=== PATIENT | female | born 1955 | race American Indian/Alaskan Native ===

== ENCOUNTER 2019-06-26 13:06 | Inpatient (IN) | payer OTHER ==
--- NOTE | 2019-06-26 14:14 | Emergency Department Report ---
HPI - General Chief Complaint: Dyspnea/Respdistress Time Seen by Provider: 06/26/19 13:34 - HPI HPI: 64-year-old -Turkish female presents to the emergency department via EMS from home with complaint of some shortness of breath and midsternal chest pain that started about 2 hours prior to arrival. The patient has a history of CHF, diabetes and end-stage renal disease on hemodialysis on Sunday and . She has missed her last 2 dialysis sessions including today due to transportation issues. She has not taken anything for symptoms prior to presentation. Symptoms are worse with laying flat. The patient is currently nonambulatory secondary to previous physical deconditioning when she was in the hospital in May. She is a [facility] patient. Pbx Repairer is Dr. Lackey and she goes to [facility] for her dialysis. ED Past Medical Hx - Past Medical History Hx Congestive Heart Failure: Yes Hx Diabetes: Yes Hx Renal Disease: Yes - Social History Smoking Status: Never Smoker ED Review of Systems ROS: Stated complaint: DIFFICULTY BREATHING Other details as noted in HPI Comment: All other systems reviewed and negative Constitutional: denies: chills, fever Eyes: denies: eye pain, vision change ENT: denies: ear pain, throat pain Respiratory: orthopnea, shortness of breath Cardiovascular: chest pain. denies: palpitations Gastrointestinal: denies: abdominal pain, vomiting Genitourinary: denies: dysuria, discharge Musculoskeletal: denies: back pain, arthralgia Skin: denies: rash, lesions Neurological: denies: headache, weakness Physical Exam - Physical Exam Vital Signs: Vital Signs 06/26/19 13:22 Temperature 98.1 F Pulse Rate 60 Respiratory 14 Rate Blood Pressure 148/59 [Left] O2 Sat by Pulse 95 Oximetry Physical Exam: GENERAL: The patient is well-developed well-nourished. HENT: Normocephalic. Atraumatic. Patient has moist mucous membranes. EYES: Extraocular motions are intact. NECK: Supple. Trachea is midline. CHEST/LUNGS: Coarse breath sounds throughout the chest. There is no respiratory distress noted. HEART/CARDIOVASCULAR: Regular. There is no tachycardia. There is no murmur. ABDOMEN: Abdomen is soft, nontender. Patient has normal bowel sounds. Morbidly obese habitus. SKIN: Patient has some mild pitting swelling and lymphedema to the bilateral lower extremities. NEURO: The patient is awake, alert, and oriented. The patient is cooperative. The patient has no focal neurologic deficits. Normal speech. MUSCULOSKELETAL: There is no tenderness or deformity. There is no evidence of acute injury. ED Course Vital Signs 06/26/19 13:22 Temperature 98.1 F Pulse Rate 60 Respiratory 14 Rate Blood Pressure 148/59 [Left] O2 Sat by Pulse 95 Oximetry - Consultations Consultation #1: I spoke with the physician at [facility], Dr. Escoto, who has given permission for the patient to be admitted to our facility. 06/26/19 16:19 Consultation #2: 06/26/19 16:20 I spoke with the steamfitter apprentice on-call, Dr. Dunbar, who is aware of the patient's need for hemodialysis and has been consulted. ED Medical Decision Making - Lab Data Result diagrams: 06/26/19 14:00 06/26/19 14:00 - EKG Data -: EKG Interpreted by Me EKG shows normal: sinus rhythm (PACs), axis (Left axis deviation), intervals, QRS complexes (Left anterior fascicular block), ST-T waves Rate: bradycardia (59 bpm) - EKG Data When compared to previous EKG there are: previous EKG unavailable Interpretation: other (Sinus rhythm with PVCs, left anterior fascicular block) - Radiology Data Radiology results: image reviewed interpreted by me: Chest x-ray shows pulmonary vascular congestion and cardiomegaly. - Medical Decision Making This patient presents with some acute chest pain and shortness of breath and has missed her last 2 dialysis sessions. Chest x-ray shows some pulmonary vascular congestion. EKG does not show any morphology consistent with ST elevation OR. Labs show a BUN of about 70 and a GFR of 5 consistent with her end-stage renal disease. No hyperkalemia. She does have an elevated troponin of 0.125. Nephrology has been contacted and consulted. [facility] has been contacted and has given permission to admit the patient to our facility. Patient was accepted for admission by the hospitalist, Dr. Lopez. - Differential Diagnosis CHF, OR, pneumonia, electrolyte abnormalities Critical Care Time: No Critical care attestation.: If time is entered above; I have spent that time in minutes in the direct care of this critically ill patient, excluding procedure time. ED Disposition Clinical Impression: Acute chest pain, End-stage renal disease needing dialysis, Elevated troponin level Disposition: 09 OP ADMIT IP TO THIS HOSP Is pt being admited?: Yes Condition: Fair Instructions: Chest Pain (ED) Time of Disposition: 16:24
[2019-06-26 14:29] LABS: Basophils # (Auto) 0.1 K/mm3 (0.0-0.1); Basophils % (Auto) 0.9 % (0.0-1.8); Eosinophils # (Auto) 0.3 K/mm3 (0.0-0.4); Eosinophils % (Auto) 3.9 % (0.0-4.3); Hematocrit 36.7 % (30.3-42.9); Lymphocytes % (Auto) 14.3 % (13.4-35.0); Mean Corpuscular HGB Conc 33 % (30-34); Mean Corpuscular Volume 88 fl (79-97); Monocytes # (Auto) 0.8 K/mm3 (0.0-0.8); Monocytes % (Auto) 11.1 % (0.0-7.3); Platelet Count 231 K/mm3 (140-440); Red Blood Count 4.17 M/mm3 (3.65-5.03); Red Cell Distribution Width 16.4 % (13.2-15.2)
[2019-06-26 14:55] LABS: Calcium 9.5 mg/dL (8.4-10.2)
[2019-06-26 15:14] LABS: Chol/HDL Ratio 3.44 %
[2019-06-26] MEDS ORDERED: ACETAMINOPHEN 325 MG TAB PO PRN (15:33)
[2019-06-26] MEDS ORDERED: ONDANSETRON 4 MG/2 ML INJ IV PRN (15:33)
[2019-06-26] MEDS ORDERED: ALBUTEROL 2.5 MG/3 ML NEBU IH PRN (15:33)
--- NOTE | 2019-06-26 15:33 | History and Physical Report ---
History of Present Illness Chief complaint: I just cannot breathe right History of present illness: 64-year-old female with ESRD on HD (T,R,Sa), DM, CHF presents to ED for evaluation. Patient states that she has experienced shortness of breath over the last 1 day with worsening symptoms over the past 6 hours. Patient states that she has missed her last 2 dialysis sessions due to inability to secure transportation to and from dialysis. EMS was notified and upon arrival the patient was found to be in distress and subsequently transported to [facility] for further care and evaluation. Patient seen and evaluated in the emergency department. Lab and imaging studies reviewed. Patient checks x-ray shows congestion. Patient found to have end-stage renal disease complicated by fluid overload and in need of urgent dialysis. Patient placed in observation status and admitted to medical floor for medical stabilization due to increased risk for decompensation. Nephrology team consulted in ED for dialysis. Patient d enies fever, chills, chest pain, palpitations, bright red blood per rectum, productive cough, skin rash, recent ill contacts. No prior admission for review. No medication listed at time of admission for reconciliation. Past History Past Medical History: diabetes, heart failure, hypertension Past Surgical History: Other (Dialysis access) Social history: . denies: smoking, alcohol abuse, prescription drug abuse Family history: hypertension Medications and Allergies Allergies Allergy/AdvReac Type Severity Reaction Status Date / Time NSAIDS (Non-Steroidal Allergy Unknown Verified 06/26/19 13:23 Anti-Inflamma Home Medications Medication Instructions Recorded Confirmed Last Taken Type AtorvaSTATin [Lipitor] 40 mg PO QHS 06/26/19 06/26/19 Unknown History Gabapentin [Neurontin] 300 mg PO QDAY 06/26/19 06/26/19 Unknown History ISOSORBIDE MONOnitrate [Imdur ER] 30 mg PO DAILY 06/26/19 06/26/19 Unknown History Insulin NPH Human Isophane 30 unit SQ BID 06/26/19 06/26/19 Unknown History [Humulin N] NIFEdipine [Adalat cc] 90 mg PO QDAY 06/26/19 06/26/19 Unknown History Torsemide [Demadex] 100 mg PO QDAY 06/26/19 06/26/19 Unknown History carvediloL [Coreg] 3.125 mg PO BID 06/26/19 06/26/19 Unknown History levETIRAcetam [Keppra XR TAB] 500 mg PO QDAY 06/26/19 06/26/19 Unknown History Review of Systems Constitutional: no weight loss, no weight gain, no fever, no chills Ears, nose, mouth and throat: no ear pain, no ear discharge, no decreased hearing, no nose pain, no nasal congestion, no nasal discharge Breasts: no change in shape, no swelling, no mass Cardiovascular: orthopnea, shortness of breath, decreased exercise tolerance, no chest pain Respiratory: no cough, no cough with sputum, no excessive sputum Gastrointestinal: no abdominal pain, no nausea, no vomiting, no diarrhea Genitourinary Female: no pelvic pain, no flank pain, no menorrhagia, no dysuria, no urinary frequency, no urgency Rectal: no pain, no incontinence, no bleeding Musculoskeletal: no neck stiffness, no neck pain, no arm numbness/tingling, no shooting leg pain, no leg numbness/tingling Integumentary: no rash, no pruritis, no redness, no sores, no wounds Neurological: no head injury, no transient paralysis, no paralysis, no weakness, no parathesias, no numbness, no tingling Psychiatric: no anxiety, no memory loss, no change in sleep habits, no sleep disturbances, no hypersomnia, no change in appetite Endocrine: no cold intolerance, no heat intolerance, no polyphagia, no excessive thirst, no polydipsia, no polyuria, no nocturia Hematologic/Lymphatic: lymphedema, no easy bruising, no easy bleeding, no lymphadenopathy Allergic/Immunologic: no urticaria, no allergic rhinitis, no anaphylaxis Exam - Constitutional Vitals: Temp Pulse Resp BP Pulse Ox 98.1 F 60 14 148/59 95 06/26/19 13:22 06/26/19 13:22 06/26/19 13:22 06/26/19 13:22 06/26/19 13:22 General appearance: Present: mild distress, obese - EENT Eyes: Present: PERRL ENT: hearing intact, clear oral mucosa - Neck Neck: Present: supple, normal ROM - Respiratory Respiratory effort: normal, accessory muscle use Respiratory: bilateral: CTA, diminished, rhonchi - Cardiovascular Heart Sounds: Present: S1 & S2. Absent: rub, click - Extremities Extremities: pulses symmetrical Extremity abnormal: edema Peripheral Pulses: within normal limits - Abdominal General gastrointestinal: Present: soft, non-tender, non-distended, normal bowel sounds Female genitourinary: Present: normal - Integumentary Integumentary: Present: clear, warm, dry - Musculoskeletal Musculoskeletal: gait normal, strength equal bilaterally - Psychiatric Psychiatric: appropriate mood/affect, intact judgment & insight - Neurologic Neurologic: CNII-XII intact, moves all extremities Results - Labs CBC & Chem 7: 06/26/19 14:00 06/26/19 14:00 Labs: Abnormal lab results 06/26/19 06/26/19 Range/Units 14:00 14:00 RDW 16.4 H (13.2-15.2) % [place] % (Auto) 11.1 H (0.0-7.3) % Lymph # 1.0 L (1.2-5.4) K/mm3 Chloride 94.8 L (98-107) mmol/L BUN 73 H (7-17) mg/dL Creatinine 9.5 H (0.7-1.2) mg/dL Glucose 202 H (65-100) mg/dL Troponin T 0.125 H* (0.00-0.029) ng/mL NT-Pro-B Natriuret Pep 4372 H (0-900) pg/mL Assessment and Plan - Patient Problems (1) ESRD (end stage renal disease) Current Visit: Yes Status: Acute Plan to address problem: Nephrology consulted in ED, strict I's/O, daily weight, monitor urine output every shift, avoid nephrotoxic agents, dialysis as per renal team. (2) Fluid overload Current Visit: Yes Status: Acute Qualifiers: Hypervolemia type: unspecified Qualified Code(s): E87.70 - Fluid overload, unspecified Plan to address problem: Chest x-ray, urgent dialysis, supplemental oxygen, pulse oximetry, supportive care. (3) Obesity hypoventilation syndrome Current Visit: Yes Status: Acute Plan to address problem: Submental oxygen, nebulizer therapy, noninvasive positive pressure ventilation as clinically indicated. (4) CHF (congestive heart failure) Current Visit: Yes Status: Acute Qualifiers: Heart failure chronicity: chronic Plan to address problem: Strict I's/O, daily weight, afterload reduction, BNP, blood pressure control, submental oxygen, supportive care (5) DVT prophylaxis Current Visit: Yes Status: Acute Plan to address problem: SCD to bilateral lower extremities while in bed, patient is ambulatory. (6) Advance care planning Current Visit: Yes Status: Acute Plan to address problem: Patient is full code, disease education conducted, patient acknowledges understanding and agreement with care plan. +30 minutes.
--- NOTE | 2019-06-26 15:36 | XRay Report ---
CHEST 1 VIEW INDICATION: SOB, CP. COMPARISON: None. FINDINGS: Support devices: A right Vas-Cath tip is in the right atrium. Heart: Mildly enlarged. Pulmonary vasculature: Central vascular congestion. Lungs/Pleura: Lungs are normally expanded and clear. No airspace disease or pleural effusion. Additional findings: None. IMPRESSION: 1. Cardiomegaly and pulmonary venous hypertension. No pulmonary edema or pleural effusion. Signer Name: Vlad Mcgill MD Signed: 06/26/2019 3:32 PM Workstation Name: [id number]
[2019-06-26] MEDS ORDERED: SODIUM CHLORIDE 0.9% 100 ML IV PRN (16:10)
[2019-06-26 16:43] LABS: Hepatitis B Surface Antigen Non-Reactive (Negative); Hepatitis C Virus Antibody Non-Reactive (NonReactive)
[2019-06-27 07:40] LABS: Calcium 9.1 mg/dL (8.4-10.2)
--- NOTE | 2019-06-27 10:34 | Progress Note ---
Assessment and Plan Assessment and plan: -- ESRD (end stage renal disease) Current Visit: Yes Status: Acute Plan to address problem: Nephrology consulted in ED, strict I's/O, daily weight, monitor urine output every shift, avoid nephrotoxic agents, dialysis as per renal team. --Fluid overload Current Visit: Yes Status: Acute Qualifiers: Hypervolemia type: unspecified Qualified Code(s): E87.70 - Fluid overload, unspecified Plan to address problem: Chest x-ray, urgent dialysis, supplemental oxygen, pulse oximetry, supportive care. -- Obesity hypoventilation syndrome Current Visit: Yes Status: Acute Plan to address problem: Submental oxygen, nebulizer therapy, noninvasive positive pressure ventilation as clinically indicated. --CHF (congestive heart failure) Current Visit: Yes Status: Acute Qualifiers: Heart failure chronicity: chronic Plan to address problem: Strict I's/O, daily weight, afterload reduction, BNP, blood pressure control, submental oxygen, supportive care --DVT prophylaxis Current Visit: Yes Status: Acute Plan to address problem: SCD to bilateral lower extremities while in bed, patient is ambulatory. -- Advance care planning Current Visit: Yes Status: Acute Plan to address problem: Patient is full code, disease education conducted, patient acknowledges understanding and agreement with care plan. +30 minutes. History Interval history: Morbidly obese 64-year-old female patient with significant history of end-stage renal disease hemodialysis diabetes mellitus congestive heart failure was admitted through emergency room with worsening shortness of breath of 1 day duration. Patient complains of shortness of breath and uneasiness Also complains of generalized body pains Alert awake oriented In mild distress, signs reviewed Hospitalist Physical - Constitutional Vitals: Temp Pulse Resp BP Pulse Ox 97.7 F 55 L 16 126/37 98 06/27/19 06:00 06/27/19 06:00 06/27/19 06:00 06/27/19 06:00 06/27/19 06:00 General appearance: Present: mild distress, well-nourished, obese - EENT Eyes: Present: PERRL, EOM intact - Neck Neck: Present: supple, normal ROM - Respiratory Respiratory effort: normal Respiratory: bilateral: diminished, wheezing, negative: rales, rhonchi - Cardiovascular Rhythm: regular Heart Sounds: Present: S1 & S2 - Extremities Extremities: no ischemia Extremity abnormal: edema - Abdominal General gastrointestinal: soft, non-tender, non-distended, normal bowel sounds - Integumentary Integumentary: Present: clear, warm - Psychiatric Psychiatric: appropriate mood/affect - Neurologic Neurologic: CNII-XII intact, moves all extremities Results - Labs CBC & Chem 7: 06/26/19 14:00 06/27/19 07:15 Labs: Laboratory Last Values WBC 6.9 K/mm3 (4.5-11.0) 06/26/19 14:00 RBC 4.17 M/mm3 (3.65-5.03) 06/26/19 14:00 Hgb 12.0 gm/dl (10.1-14.3) 06/26/19 14:00 Hct 36.7 % (30.3-42.9) 06/26/19 14:00 MCV 88 fl (79-97) 06/26/19 14:00 MCH 29 pg (28-32) 06/26/19 14:00 MCHC 33 % (30-34) 06/26/19 14:00 RDW 16.4 % (13.2-15.2) H 06/26/19 14:00 Plt Count 231 K/mm3 (140-440) 06/26/19 14:00 Lymph % (Auto) 14.3 % (13.4-35.0) 06/26/19 14:00 [place] % (Auto) 11.1 % (0.0-7.3) H 06/26/19 14:00 Eos % (Auto) 3.9 % (0.0-4.3) 06/26/19 14:00 Baso % (Auto) 0.9 % (0.0-1.8) 06/26/19 14:00 Lymph # 1.0 K/mm3 (1.2-5.4) L 06/26/19 14:00 [place] # 0.8 K/mm3 (0.0-0.8) 06/26/19 14:00 Eos # 0.3 K/mm3 (0.0-0.4) 06/26/19 14:00 Baso # 0.1 K/mm3 (0.0-0.1) 06/26/19 14:00 Seg Neutrophils % 69.8 % (40.0-70.0) 06/26/19 14:00 Seg Neutrophils # 4.8 K/mm3 (1.8-7.7) 06/26/19 14:00 Sodium 138 mmol/L (137-145) 06/27/19 07:15 Potassium 5.1 mmol/L (3.6-5.0) H 06/27/19 07:15 Chloride 95.2 mmol/L (98-107) L 06/27/19 07:15 Carbon Dioxide 22 mmol/L (22-30) 06/27/19 07:15 Anion Gap 26 mmol/L 06/27/19 07:15 BUN 87 mg/dL (7-17) H 06/27/19 07:15 Creatinine 9.4 mg/dL (0.7-1.2) H 06/27/19 07:15 Estimated GFR 5 ml/min 06/27/19 07:15 BUN/Creatinine Ratio 9 % 06/27/19 07:15 Glucose 187 mg/dL (65-100) H 06/27/19 07:15 Calcium 9.1 mg/dL (8.4-10.2) 06/27/19 07:15 Troponin T 0.125 ng/mL (0.00-0.029) H* 06/26/19 14:00 NT-Pro-B Natriuret Pep 4372 pg/mL (0-900) H 06/26/19 14:00 Triglycerides 142 mg/dL (2-149) 06/26/19 14:00 Cholesterol 169 mg/dL (50-199) 06/26/19 14:00 LDL Cholesterol Direct 112 mg/dL (50-130) 06/26/19 14:00 HDL Cholesterol 49 mg/dL (40-59) 06/26/19 14:00 Cholesterol/HDL Ratio 3.44 % 06/26/19 14:00 Hepatitis A IgM Ab Non-reactive (NonReactive) 06/26/19 14:00 Hep Bs Antigen Non-reactive (Negative) 06/26/19 14:00 Hep B Core IgM Ab Non-reactive (NonReactive) 06/26/19 14:00 Hepatitis C Antibody Non-reactive (NonReactive) 06/26/19 14:00 Active Medications - Current Medications Current Medications: Generic Name Dose Route Start Last Admin Trade Name Freq PRN Reason Stop Dose Admin Acetaminophen 650 mg 06/26/19 15:33 Tylenol PO Q4H PRN Pain MILD(1-3)/Fever >100.5/HUITRON Albuterol 2.5 mg 06/26/19 15:33 Proventil IH Q4HRT PRN Shortness Of Breath Sodium Chloride 100 mls @ 999 mls/hr 06/26/19 16:10 Nacl 0.9% IV LIONEL PRN Hypotension Ondansetron HCl 4 mg 06/26/19 15:33 Zofran IV Q8H PRN Nausea And Vomiting Sodium Chloride 10 ml 06/26/19 22:00 Sodium Chloride Flush Syringe 10 Ml IV BID SATHYA Sodium Chloride 10 ml 06/26/19 15:33 Sodium Chloride Flush Syringe 10 Ml IV PRN PRN LINE FLUSH
--- NOTE | 2019-06-27 13:39 | Consultation ---
History of Present Illness - Reason for Consult chronic renal failure - History of Present Illness Pleasant 64 y/o AAF with h/o CKD V in the setting of DM, CHF, HTN, who recently was started on chronic HD ~ one month prior, presented to the ED short of breath after missing two consecutive HD sessions secondary to transportation issues. Patient typically dialyzes on a TTS schedule. Her outpatient right of way buyer is Dr Lackey. She dialyzes via a RIJ permcath. Nephrology consulted for chronic HD needs. Past History Past Medical History: diabetes, heart failure, hypertension Past Surgical History: Other (Dialysis access) Social history: . denies: smoking, alcohol abuse, prescription drug abuse Family history: hypertension Medications and Allergies Allergies Allergy/AdvReac Type Severity Reaction Status Date / Time NSAIDS (Non-Steroidal Allergy Unknown Verified 06/26/19 13:23 Anti-Inflamma Home Medications Medication Instructions Recorded Confirmed Last Taken Type AtorvaSTATin [Lipitor] 40 mg PO QHS 06/26/19 06/26/19 Unknown History Gabapentin [Neurontin] 300 mg PO QDAY 06/26/19 06/26/19 Unknown History ISOSORBIDE MONOnitrate [Imdur ER] 30 mg PO DAILY 06/26/19 06/26/19 Unknown History Insulin NPH Human Isophane 30 unit SQ BID 06/26/19 06/26/19 Unknown History [Humulin N] NIFEdipine [Adalat cc] 90 mg PO QDAY 06/26/19 06/26/19 Unknown History Torsemide [Demadex] 100 mg PO QDAY 06/26/19 06/26/19 Unknown History carvediloL [Coreg] 3.125 mg PO BID 06/26/19 06/26/19 Unknown History levETIRAcetam [Keppra XR TAB] 500 mg PO QDAY 06/26/19 06/26/19 Unknown History Active Meds: Active Medications Acetaminophen (Tylenol) 650 mg PO Q4H PRN PRN Reason: Pain MILD(1-3)/Fever >100.5/HUITRON Albuterol (Proventil) 2.5 mg IH Q4HRT PRN PRN Reason: Shortness Of Breath Sodium Chloride (Nacl 0.9%) 100 mls @ 999 mls/hr IV LIONEL PRN PRN Reason: Hypotension Ondansetron HCl (Zofran) 4 mg IV Q8H PRN PRN Reason: Nausea And Vomiting Sodium Chloride (Sodium Chloride Flush Syringe 10 Ml) 10 ml IV BID SATHYA Sodium Chloride (Sodium Chloride Flush Syringe 10 Ml) 10 ml IV PRN PRN PRN Reason: LINE FLUSH Review of Systems All systems: negative Constitutional: fatigue, weakness Respiratory: shortness of breath Exam - Vital Signs Vital signs: Vital Signs Pulse Ox 96 06/26/19 13:12 - General Appearance General appearance: well-developed, well-nourished, obese EENT: ATNC, PERRL Neck: Present: neck supple, trachea midline Respiratory: Decreased Breath Sounds Heart: regular, S1S2 Gastrointestinal: Present: normal, normoactive bowel sounds Integumentary: no rash, warm and dry Neurologic: no focal deficit Musculoskeletal: Present: deferred Psychiatric: mood/affect appropriate Results - Lab Results 06/26/19 14:00 06/27/19 07:15 Most recent lab results Calcium 9.1 mg/dL (8.4-10.2) 06/27/19 07:15 Assessment and Plan - Patient Problems (1) ESRD (end stage renal disease) Current Visit: Yes Status: Chronic Plan to address problem: Will dialyze today and then place back on a TTS inpatient schedule. (2) Hyperkalemia Current Visit: Yes Status: Acute Plan to address problem: Will dialyze on 2K bath. Counseled patient on the importance of low potassium diet. (3) Fluid overload Current Visit: Yes Status: Acute Qualifiers: Hypervolemia type: unspecified Qualified Code(s): E87.70 - Fluid overload, unspecified Plan to address problem: Will optimze fluid status with two consecutive HD session, with UF goal 2-3 L per treatment as tolerated. (4) Type 2 diabetes mellitus with diabetic chronic kidney disease Current Visit: Yes Status: Chronic Qualifiers: Chronic kidney disease stage: on chronic dialysis Plan to address problem: Management per primary attending. (5) Hypertensive chronic kidney disease with stage 5 chronic kidney disease or end stage renal disease Current Visit: Yes Status: Acute Plan to address problem: Monitor blood pressure under current regimen.
[2019-06-27] MEDS: oxyCODONE /ACETAMINOPHEN 5-325MG TAB PO PRN (20:47)
[2019-06-27] MEDS: INSULIN LISPRO 100 UNIT/ML SUB-Q SCH (22:03)
[2019-06-27] MEDS: carvediloL 3.125 MG TAB PO SCH (22:03)
[2019-06-28] MEDS: oxyCODONE /ACETAMINOPHEN 5-325MG TAB PO PRN (03:44)
[2019-06-28] MEDS: INSULIN NPH, HUMAN 100 UNIT/1 ML SUB-Q SCH ×2 (09:49→23:01)
[2019-06-28] MEDS: levETIRAcetam 500 MG TAB PO SCH ×2 (09:49→22:57)
[2019-06-28] MEDS: GABAPENTIN 300 MG CAP PO SCH (09:50)
[2019-06-28] MEDS: TORSEMIDE 100 MG TAB PO SCH (09:50)
[2019-06-28] MEDS: INSULIN LISPRO 100 UNIT/ML SUB-Q SCH ×4 (09:51→23:00)
[2019-06-28] MEDS ORDERED: LEVETIRACETAM 500 MG PO SCH (10:00)
[2019-06-28] MEDS ORDERED: NON-FORMULARY EACH (Nifedipine [Adalat Cc] 90 MG) PO SCH (10:00)
--- NOTE | 2019-06-28 10:59 | Progress Note ---
Assessment and Plan Assessment and plan: Patient was admitted with fluid overload received hemodialysis yesterday Nephrology recommend HD today for removal of excess fluid Patient also complains of left wrist pain Will check x-ray left wrist for any acute abnormality Consult orthopedic if needed --Left wrist pain; probably arthritis Supportive care, pain medications, x-ray left wrist -- ESRD (end stage renal disease) Current Visit: Yes Status: Acute Plan to address problem: Nephrology consulted in ED, strict I's/O, daily weight, monitor urine output every shift, avoid nephrotoxic agents, dialysis as per renal team. --Fluid overload Current Visit: Yes Status: Acute Plan to address problem: Chest x-ray, urgent dialysis, supplemental oxygen, pulse oximetry, supportive care. -- Obesity hypoventilation syndrome Current Visit: Yes Status: Acute Plan to address problem: oxygen, nebulizer therapy, noninvasive positive pressure ventilation as clinically indicated. --CHF (congestive heart failure) Current Visit: Yes Status: Acute Plan to address problem: Strict I's/O, daily weight, afterload reduction, BNP, blood pressure control, submental oxygen, supportive care --DVT prophylaxis Current Visit: Yes Status: Acute Plan to address problem: SCD to bilateral lower extremities while in bed, patient is ambulatory. -- Advance care planning Current Visit: Yes Status: Acute Plan to address problem: Patient is full code, disease education conducted, patient acknowledges understanding and agreement with care plan. History Interval history: Patient seen and examined patient's chart , medications and other records reviewed Patient complains of left wrist pain and swelling for the last couple of days, No history of trauma Feels slightly better; receiving hemodialysis per schedule Still has some fluid overload complains of shortness of breath Vital signs noted Hospitalist Physical - Constitutional Vitals: Temp Pulse Resp BP Pulse Ox 98.5 F 57 L 20 167/46 98 06/28/19 05:46 06/28/19 05:46 06/28/19 05:46 06/28/19 05:46 06/28/19 05:46 General appearance: Present: mild distress, well-nourished, obese - EENT Eyes: Present: PERRL, EOM intact - Neck Neck: Present: supple, normal ROM - Respiratory Respiratory effort: normal Respiratory: bilateral: diminished, rales, negative: rhonchi, wheezing - Cardiovascular Rhythm: regular Heart Sounds: Present: S1 & S2 - Extremities Extremities: no ischemia, No edema - Abdominal General gastrointestinal: soft, non-tender, non-distended, normal bowel sounds - Integumentary Integumentary: Present: clear, warm - Psychiatric Psychiatric: appropriate mood/affect, cooperative - Neurologic Neurologic: moves all extremities Results - Labs CBC & Chem 7: 06/26/19 14:00 06/27/19 07:15 Labs: Laboratory Last Values WBC 6.9 K/mm3 (4.5-11.0) 06/26/19 14:00 RBC 4.17 M/mm3 (3.65-5.03) 06/26/19 14:00 Hgb 12.0 gm/dl (10.1-14.3) 06/26/19 14:00 Hct 36.7 % (30.3-42.9) 06/26/19 14:00 MCV 88 fl (79-97) 06/26/19 14:00 MCH 29 pg (28-32) 06/26/19 14:00 MCHC 33 % (30-34) 06/26/19 14:00 RDW 16.4 % (13.2-15.2) H 06/26/19 14:00 Plt Count 231 K/mm3 (140-440) 06/26/19 14:00 Lymph % (Auto) 14.3 % (13.4-35.0) 06/26/19 14:00 [place] % (Auto) 11.1 % (0.0-7.3) H 06/26/19 14:00 Eos % (Auto) 3.9 % (0.0-4.3) 06/26/19 14:00 Baso % (Auto) 0.9 % (0.0-1.8) 06/26/19 14:00 Lymph # 1.0 K/mm3 (1.2-5.4) L 06/26/19 14:00 [place] # 0.8 K/mm3 (0.0-0.8) 06/26/19 14:00 Eos # 0.3 K/mm3 (0.0-0.4) 06/26/19 14:00 Baso # 0.1 K/mm3 (0.0-0.1) 06/26/19 14:00 Seg Neutrophils % 69.8 % (40.0-70.0) 06/26/19 14:00 Seg Neutrophils # 4.8 K/mm3 (1.8-7.7) 06/26/19 14:00 Sodium 138 mmol/L (137-145) 06/27/19 07:15 Potassium 5.1 mmol/L (3.6-5.0) H 06/27/19 07:15 Chloride 95.2 mmol/L (98-107) L 06/27/19 07:15 Carbon Dioxide 22 mmol/L (22-30) 06/27/19 07:15 Anion Gap 26 mmol/L 06/27/19 07:15 BUN 87 mg/dL (7-17) H 06/27/19 07:15 Creatinine 9.4 mg/dL (0.7-1.2) H 06/27/19 07:15 Estimated GFR 5 ml/min 06/27/19 07:15 BUN/Creatinine Ratio 9 % 06/27/19 07:15 Glucose 187 mg/dL (65-100) H 06/27/19 07:15 POC Glucose 217 (70-105) H 06/28/19 08:47 Calcium 9.1 mg/dL (8.4-10.2) 06/27/19 07:15 Troponin T 0.125 ng/mL (0.00-0.029) H* 06/26/19 14:00 NT-Pro-B Natriuret Pep 4372 pg/mL (0-900) H 06/26/19 14:00 Triglycerides 142 mg/dL (2-149) 06/26/19 14:00 Cholesterol 169 mg/dL (50-199) 06/26/19 14:00 LDL Cholesterol Direct 112 mg/dL (50-130) 06/26/19 14:00 HDL Cholesterol 49 mg/dL (40-59) 06/26/19 14:00 Cholesterol/HDL Ratio 3.44 % 06/26/19 14:00 Hepatitis A IgM Ab Non-reactive (NonReactive) 06/26/19 14:00 Hep Bs Antigen Non-reactive (Negative) 06/26/19 14:00 Hep B Core IgM Ab Non-reactive (NonReactive) 06/26/19 14:00 Hepatitis C Antibody Non-reactive (NonReactive) 06/26/19 14:00 Active Medications - Current Medications Current Medications: Generic Name Dose Route Start Last Admin Trade Name Freq PRN Reason Stop Dose Admin Acetaminophen 650 mg 06/26/19 15:33 Tylenol PO Q4H PRN Pain MILD(1-3)/Fever >100.5/HUITRON Albuterol 2.5 mg 06/26/19 15:33 Proventil IH Q4HRT PRN Shortness Of Breath Atorvastatin Calcium 40 mg 06/27/19 22:00 06/27/19 22:03 Lipitor PO 40 mg QHS SATHYA Administration Carvedilol 3.125 mg 06/27/19 22:00 06/27/19 22:03 Coreg PO 3.125 mg BID SATHYA Administration Gabapentin 300 mg 06/28/19 10:00 06/28/19 09:50 Gabapentin PO 300 mg QDAY SATHYA Administration Sodium Chloride 100 mls @ 999 mls/hr 06/26/19 16:10 Nacl 0.9% IV LIONEL PRN Hypotension Insulin Human Lispro 0 unit 06/27/19 22:00 06/28/19 09:51 Humalog SUB-Q 3 unit ACHS SATHYA Administration Protocol Insulin Human NPH 30 unit 06/27/19 22:00 06/28/19 09:49 Humulin N SUB-Q 30 unit BID SATHYA Administration Isosorbide Mononitrate 30 mg 06/28/19 10:00 Imdur PO DAILY COUNT INCLUDES THE [facility] Levetiracetam 250 mg 06/28/19 10:00 06/28/19 09:49 Keppra PO 250 mg BID SATHYA Administration Nifedipine 90 mg 06/28/19 10:00 Procardia Xl PO QDAY COUNT INCLUDES THE [facility] Ondansetron HCl 4 mg 06/26/19 15:33 Zofran IV Q8H PRN Nausea And Vomiting Oxycodone/Acetaminophen 1 tab 06/27/19 17:16 06/28/19 03:44 Percocet 5/325 PO 1 tab Q6H PRN Administration Pain, Moderate (4-6) Sodium Chloride 10 ml 06/26/19 22:00 06/28/19 09:48 Sodium Chloride Flush Syringe 10 Ml IV 10 ml BID SATHYA Administration Sodium Chloride 10 ml 06/26/19 15:33 Sodium Chloride Flush Syringe 10 Ml IV PRN PRN LINE FLUSH Torsemide 100 mg 06/28/19 10:00 06/28/19 09:50 Demadex PO 100 mg QDAY SATHYA Administration
[2019-06-28] MEDS ORDERED: SODIUM CHLORIDE 0.9% 100 ML IV PRN (11:06)
[2019-06-28] MEDS: carvediloL 3.125 MG TAB PO SCH ×2 (11:23→22:59)
[2019-06-28] MEDS: NIFEdipine XL 90 MG TAB PO SCH (11:28)
--- NOTE | 2019-06-28 12:50 | XRay Report ---
LEFT WRIST 4 VIEW(S) INDICATION / CLINICAL INFORMATION: pain/swelling COMPARISON: None available. 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 No acute fracture or subluxation. SOFT TISSUES: Moderate soft tissue swelling around the left wrist. Vascular calcifications characteri stic of diabetes and/or renal failure. ADDITIONAL FINDINGS: None. Signer Name: Seng Roth MD Signed: 06/28/2019 12:45 PM Workstation Name: [id number]
[2019-06-29] MEDS: INSULIN LISPRO 100 UNIT/ML SUB-Q SCH ×2 (07:54→13:57)
--- NOTE | 2019-06-29 08:44 | Progress Note ---
Assessment and Plan - Patient Problems (1) End-stage renal disease needing dialysis Current Visit: Yes Status: Acute Plan to address problem: cont HD on TTS inpatient schedule. (2) Hyperkalemia Current Visit: Yes Status: Acute Plan to address problem: To be corrected with HD Counseled patient on the importance of low potassium diet. (3) Fluid overload Current Visit: Yes Status: Acute Qualifiers: Hypervolemia type: unspecified Qualified Code(s): E87.70 - Fluid overload, unspecified Plan to address problem: Fluid status improved with consecutive HDs. cont HD on TTS schedule (4) Type 2 diabetes mellitus with diabetic chronic kidney disease Current Visit: Yes Status: Chronic Qualifiers: Chronic kidney disease stage: on chronic dialysis Plan to address problem: Management per primary attending. (5) Hypertensive chronic kidney disease with stage 5 chronic kidney disease or end stage renal disease Current Visit: Yes Status: Acute Plan to address problem: Monitor blood pressure under current regimen. Subjective Date of service: 06/29/19 Principal diagnosis: ESRD Interval history: Pt awake, alert, in no acute distress, denies fever, chills, CP, SOB, palpitations. Objective - Vital Signs Vital signs: Vital Signs - 12hr 06/28/19 06/28/19 06/29/19 21:11 22:59 05:08 Temperature 98.6 F 98.8 F Pulse Rate 62 62 59 L Respiratory 16 20 Rate Blood Pressure 165/47 165/47 148/44 O2 Sat by Pulse 98 99 Oximetry - General Appearance General appearance: well-developed, well-nourished, appears stated age, obese EENT: ATNC, PERRL, mucous membranes moist Neck: no JVD Respiratory: Present: Decreased Breath Sounds Cardiology: regular, S1S2 Gastrointestinal: normoactive bowel sounds, obese Integumentary: no rash Neurologic: no focal deficit, alert and oriented x3, strength 5/5, CN 3-12 intact Psychiatric: mood/affect appropriate, cooperative - Lab 06/26/19 14:00 06/27/19 07:15 Most recent lab results Calcium 9.1 mg/dL (8.4-10.2) 06/27/19 07:15 Medications & Allergies - Medications Allergies/Adverse Reactions: Allergies NSAIDS (Non-Steroidal Anti-Inflamma Allergy (Verified 06/26/19 13:23) Unknown Home Medications: Home Medications Medication Instructions Recorded Confirmed Last Taken Type AtorvaSTATin [Lipitor] 40 mg PO QHS 06/26/19 06/26/19 Unknown History Gabapentin [Neurontin] 300 mg PO QDAY 06/26/19 06/26/19 Unknown History ISOSORBIDE MONOnitrate [Imdur ER] 30 mg PO DAILY 06/26/19 06/26/19 Unknown History Insulin NPH Human Isophane 30 unit SQ BID 06/26/19 06/26/19 Unknown History [Humulin N] NIFEdipine [Adalat cc] 90 mg PO QDAY 06/26/19 06/26/19 Unknown History Torsemide [Demadex] 100 mg PO QDAY 06/26/19 06/26/19 Unknown History carvediloL [Coreg] 3.125 mg PO BID 06/26/19 06/26/19 Unknown History levETIRAcetam [Keppra XR TAB] 500 mg PO QDAY 06/26/19 06/26/19 Unknown History Active Medications: Generic Name Dose Route Start Last Admin Trade Name Freq PRN Reason Stop Dose Admin Acetaminophen 650 mg 06/26/19 15:33 Tylenol PO Q4H PRN Pain MILD(1-3)/Fever >100.5/HUITRON Albuterol 2.5 mg 06/26/19 15:33 Proventil IH Q4HRT PRN Shortness Of Breath Atorvastatin Calcium 40 mg 06/27/19 22:00 06/28/19 23:02 Lipitor PO 40 mg QHS SATHYA Administration Carvedilol 3.125 mg 06/27/19 22:00 06/28/19 22:59 Coreg PO 3.125 mg BID SATHYA Administration Gabapentin 300 mg 06/28/19 10:00 06/28/19 09:50 Gabapentin PO 300 mg QDAY SATHYA Administration Sodium Chloride 100 mls @ 999 mls/hr 06/26/19 16:10 Nacl 0.9% IV LIONEL PRN Hypotension Sodium Chloride 100 mls @ 999 mls/hr 06/28/19 11:06 Nacl 0.9% IV LIONEL PRN Hypotension Insulin Human Lispro 0 unit 06/27/19 22:00 06/29/19 07:54 Humalog SUB-Q Not Given ACHS SATHYA Protocol Insulin Human NPH 30 unit 06/27/19 22:00 06/28/19 23:01 Humulin N SUB-Q 30 unit BID SATHYA Administration Isosorbide Mononitrate 30 mg 06/28/19 10:00 06/28/19 11:25 Imdur PO Not Given DAILY SATHYA Levetiracetam 250 mg 06/28/19 10:00 06/28/19 22:57 Keppra PO 250 mg BID SATHYA Administration Nifedipine 90 mg 06/28/19 10:00 06/28/19 11:28 Procardia Xl PO Not Given QDAY SATHYA Ondansetron HCl 4 mg 06/26/19 15:33 Zofran IV Q8H PRN Nausea And Vomiting Oxycodone/Acetaminophen 1 tab 06/27/19 17:16 06/28/19 03:44 Percocet 5/325 PO 1 tab Q6H PRN Administration Pain, Moderate (4-6) Sodium Chloride 10 ml 06/26/19 22:00 06/28/19 23:01 Sodium Chloride Flush Syringe 10 Ml IV 10 ml BID SATHYA Administration Sodium Chloride 10 ml 06/26/19 15:33 Sodium Chloride Flush Syringe 10 Ml IV PRN PRN LINE FLUSH Torsemide 100 mg 06/28/19 10:00 06/28/19 09:50 Demadex PO 100 mg QDAY SATHYA Administration
[2019-06-29] MEDS: NIFEdipine XL 90 MG TAB PO SCH (09:10)
[2019-06-29 09:12] VITALS: BP 155/60
[2019-06-29] MEDS: INSULIN NPH, HUMAN 100 UNIT/1 ML SUB-Q SCH (09:12)
[2019-06-29] MEDS: levETIRAcetam 500 MG TAB PO SCH (09:12)
[2019-06-29] MEDS: TORSEMIDE 100 MG TAB PO SCH (09:14)
[2019-06-29] MEDS: carvediloL 3.125 MG TAB PO SCH (09:14)
[2019-06-29] MEDS: GABAPENTIN 300 MG CAP PO SCH (09:15)
--- NOTE | 2019-06-29 09:21 | Discharge Summary ---
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] No acute fracture or subluxation Disposition: NM-01 TO HOME OR SELFCARE Time spent for discharge: 32 min Core Measure Documentation - Palliative Care Palliative Care/ Comfort Measures: Not Applicable - Core Measures Any of the following diagnoses?: none Exam - Constitutional Vitals: Temp Pulse Resp BP Pulse Ox 98.8 F 63 20 155/60 99 06/29/19 05:08 06/29/19 09:14 06/29/19 05:08 06/29/19 09:14 06/29/19 05:08 General appearance: Present: no acute distress, obese (Morbidly obese) - EENT Eyes: Present: PERRL, EOM intact - Neck Neck: Present: supple, normal ROM - Respiratory Respiratory effort: normal Respiratory: bilateral: diminished, negative: rales, rhonchi, wheezing - Cardiovascular Rhythm: regular Heart Sounds: Present: S1 & S2 - Extremities Extremities: no ischemia, No edema - Abdominal General gastrointestinal: Present: soft, non-tender, non-distended, normal bowel sounds - Integumentary Integumentary: Present: clear, warm - Musculoskeletal Musculoskeletal: generalized weakness - Psychiatric Psychiatric: appropriate mood/affect, cooperative - Neurologic Neurologic: moves all extremities Plan Activity: advance as tolerated, fall precautions Diet: diabetic, renal Additional Instructions: Advised to see [place] primary care physician per schedule. [place] orthopedic surgeon in 1 to 2 weeks, for further evaluation of left wrist pain. Advised to follow [place] tube pusher/hemodialysis per schedule TTS. Patient was recently discharged from rehab facility, home health services per [place] as needed Follow up with: PRIMARY CARE, [Primary Care Provider] - 3-5 Days LEAH SOLANO, DO [Staff Physician] - 7 Days
== END 2019-06-29 16:03 | disposition home or self-care (01) | DRG 640 ==
LOC: ED 13:06 → 3A 15:33 → OBSVTOIN 06-27 16:24
PROVIDERS: ADMIT Internal Medicine; ATTEND Internal Medicine
PROC: 5A1D70Z Performance of Urinary Filtration, Intermittent, Less than 6 Hours Per Day (ICD-10-PCS; principal; 2019-06-27)
PROC: 5A1D70Z Performance of Urinary Filtration, Intermittent, Less than 6 Hours Per Day (ICD-10-PCS; 2019-06-28)
DX: E87.70 Fluid overload, unspecified (principal); N18.6 End stage renal disease; I13.2 Hypertensive heart and chronic kidney disease with heart failure and with stage 5 chronic kidney disease, or end stage renal disease; E66.2 Morbid (severe) obesity with alveolar hypoventilation; Z68.44 Body mass index [BMI] 60.0-69.9, adult; E87.5 Hyperkalemia; M93.1 Kienbock's disease of adults; I50.9 Heart failure, unspecified; E11.22 Type 2 diabetes mellitus with diabetic chronic kidney disease; Z71.3 Dietary counseling and surveillance; Z99.2 Dependence on renal dialysis; Z82.49 Family history of ischemic heart disease and other diseases of the circulatory system; Z88.8 Allergy status to other drugs, medicaments and biological substances; Z79.4 Long term (current) use of insulin; Z79.899 Other long term (current) drug therapy
CPT/HCPCS: 36415; 71045; 80048; 80061; 80074; 82962; 83880; 84484; 85025; 87116; 93005; 93010; 94760; 96374; G0378; A9270-GY; J1815